=== PATIENT | male | born 1950 | race Caucasian/White ===

== ENCOUNTER 2016-04-06 10:40 | Emergency (ER) | payer OTHER ==
[~2016-04-06] VITALS: Ht 158.8 cm; Wt 56.5 kg
[~2016-04-06 10:40] MED LIST: Bactrim,Septra DS 80 PO; ENDOCET 5-3251 EACH PO; NOHOMEMEDS
[2016-04-06 11:52] LABS: CHLORIDE 105 mEq/L (99-109); POTASSIUM 4.2 mEq/L (3.7-5.4); SODIUM 137 mEq/L (136-147)
[2016-04-06 11:54] LABS: GLUCOSE 98 mg/dL (70-99)
[2016-04-06 11:55] LABS: ANION GAP 8 MEQ/L (2-14)
[2016-04-06 11:58] LABS: GFR ESTIMATE (CALCULATED) > 59 mL/min/
[2016-04-06 11:59] LABS: UREA NITROGEN (BUN) 17 mg/dL (9-23)
[2016-04-06 12:04] LABS: TROP-I INTERPRETATION NEGATIVE; TROPONIN-I < 0.01 ng/mL (0.0-0.30)
[2016-04-06 16:19] LABS: HEMATOCRIT 49.6 % (38.0-50.0); MCH 33.1 PG (29.0-34.0); MCHC 34.1 G/DL (30.0-36.0); MCV 97.3 FL (86-99); PLATELET COUNT 256 K/uL (156-360); RBC DIS.WIDTH-CV 13.3 % (11.8-14.6); RBC DIS.WIDTH-SD 46.8 % (39-53); WHITE BLOOD COUNT 9.1 K/uL (4.1-10.2)
[2016-04-06 16:43] LABS: TROP-I INTERPRETATION NEGATIVE; TROPONIN-I < 0.01 ng/mL (0.0-0.30)
[2016-04-06] MEDS ORDERED: OMEPRAZOLE40 M1 PO (17:28)
[2016-04-06 17:44] VITALS: BP 100/63
== END 2016-04-06 18:22 | disposition home or self-care (01) ==
LOC: EME 10:40
PROVIDERS: Physician Assistant
DX: R07.9 Chest pain, unspecified (principal); F17.200 Nicotine dependence, unspecified, uncomplicated
CPT/HCPCS: 71020; 80048; 84484; 85027; 93005; 99281; 99284